=== PATIENT | female | born 2000 | race Caucasian/White ===

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

== ENCOUNTER 2024-07-06 18:35 | Emergency (ER) | payer SELFPAY ==
[~2024-07-06] VITALS: Ht 167.6 cm; Wt 75.0 kg
[2024-07-06 21:30] VITALS: BP 120/79
== END 2024-07-06 21:25 | disposition home or self-care (01) ==
LOC: ED 18:35
DX: S00.93XA Contusion of unspecified part of head, initial encounter (principal); S30.0XXA Contusion of lower back and pelvis, initial encounter; S20.221A Contusion of right back wall of thorax, initial encounter; W18.30XA Fall on same level, unspecified, initial encounter; Z91.018 Allergy to other foods
CPT/HCPCS: 36415; 70450; 71260; 72125; 74177; 84702; 99284-25; Q9967